=== PATIENT | male | born 1945 | race Caucasian/White ===

== ENCOUNTER → 2022-05-21 09:26 | Outpatient (CLI) | payer OTHER, SELFPAY ==
[2022-05-21 10:32] LABS: COVID19 -Nasal RAPID Negative (Negative)
--- NOTE | 2022-05-22 19:16 | DI.NM.S_ITS ---
DATE OF SERVICE: PROCEDURE: Exercise perfusion study. INDICATION: History of ventricular tachycardia. RADIOPHARMACEUTICAL: 25.9 mCi technetium-99m Myoview IV was injected at stress, and 27.5 mCi technetium-99m Myoview IV was injected at rest. CARDIAC STRESS: The patient underwent exercise perfusion study under the supervision of an attending staff using standard Kelvin protocol. The patient walked on Kelvin protocol for 9 minutes and 30 seconds, achieved 95 percent of target heart rate. Baseline blood pressure 172/72 mmHg. Peak blood pressure 190/72 mmHg. NEVILLE -46 percent. Achieved 10.1 METs of workload. No chest pain or anginal symptoms. Baseline rhythm was sinus with intermittent PVCs. However, during peak exercise, PVCs got suppressed. No ventricular tachycardia seen. No ischemic EKG changes seen. RAW DATA: Increased subdiaphragmatic activity. GATED STUDY: Resting LV ejection fraction 61 and stress LV ejection fraction 64 percent without any obvious wall motion abnormalities. Resting end-diastolic volume 199 mL. TID ratio 0.76, which is within normal limits. Lung/heart ratio 0.25, which is within normal limits. MYOCARDIAL PERFUSION SCAN: Stress supine, resting supine and stress prone images were compared to each other. Stress supine and resting supine images revealed moderate-size, moderate to severely decreased perfusion of base to mid inferior wall extending into the basal inferolateral wall which got completely resolved during stress prone images suggestive of diaphragmatic tissue attenuation artifact. CONCLUSION: I will call this study likely a normal myocardial perfusion study with evidence of diaphragmatic tissue attenuation artifact, which got resolved during stress prone images. Excellent exercise tolerance. Walked on Kelvin protocol for 9 minutes and 30 seconds. Functional aerobic impairment -46 percent. Normal left ventricular function. Baseline isolated premature ventricular contractions which got suppressed during exercise. No obvious ventricular tachycardia seen. Overall low-risk myocardial perfusion scan. Seb Rangel - DAVEY/theresa/ANTHONY doc#: [id number]/job#: [id number] dd: 05/22/2022 16:55:00 dt: 05/22/2022 18:59:00 DICTATING MD/COPIES TO: Lit Loomis MD COPIES MNE: RICA;
== END ==
PROVIDERS: Referring Provider Internal Medicine; Visit Provider Internal Medicine
DX: I47.20 Ventricular tachycardia, unspecified (principal); Z20.822 Contact with and (suspected) exposure to COVID-19
CPT/HCPCS: 78452; 87635; 93017; A9502